=== PATIENT | male | born 1965 | race American Indian/Alaskan Native ===

== ENCOUNTER 2020-02-02 13:42 | Emergency (ER) | payer OTHER ==
[~2020-02-02] VITALS: Ht 177.8 cm; Wt 86.2 kg
[~2020-02-02 13:42] MED LIST: AZIT250 PO; CLOT10 SUSW; HYDACE5 PO; LITH300C; NAPR500 PO
[2020-02-02] MEDS ORDERED: HYDR1TAB94 PO (15:39)
== END 2020-02-02 15:54 | disposition home or self-care (01) ==
LOC: ER 13:42
DX: S83.91XA Sprain of unspecified site of right knee, initial encounter (principal); S86.911A Strain of unspecified muscle(s) and tendon(s) at lower leg level, right leg, initial encounter; F17.200 Nicotine dependence, unspecified, uncomplicated; X50.1XXA Overexertion from prolonged static or awkward postures, initial encounter
CPT/HCPCS: 73562-RT; 99283-25

== ENCOUNTER 2020-05-11 10:03 | Emergency (ER) | payer OTHER ==
[~2020-05-11] VITALS: Ht 177.8 cm; Wt 83.9 kg
[~2020-05-11 10:03] MED LIST changes: +HYDR1TAB94 PO
[2020-05-11] MEDS ORDERED: IBUP400 PO (12:29)
[2020-05-11] MEDS ORDERED: Percocet 5-3251 EACH PO (12:29)
== END 2020-05-11 12:52 | disposition home or self-care (01) ==
LOC: ER 10:03
DX: S62.625A Displaced fracture of middle phalanx of left ring finger, initial encounter for closed fracture (principal); S83.91XA Sprain of unspecified site of right knee, initial encounter; J44.9 Chronic obstructive pulmonary disease, unspecified; F17.210 Nicotine dependence, cigarettes, uncomplicated; Z87.828 Personal history of other (healed) physical injury and trauma; W14.XXXA Fall from tree, initial encounter
CPT/HCPCS: 73140; 73562-RT; 99283-25

== ENCOUNTER 2020-12-11 07:49 | Emergency (ER) | payer OTHER ==
[~2020-12-11] VITALS: Ht 177.8 cm; Wt 81.7 kg
[~2020-12-11 07:49] MED LIST changes: +IBUP400 PO; +Percocet 5-3251 EACH PO
[2020-12-11] MEDS ORDERED: IBUP600 PO (10:00)
[2020-12-11] MEDS ORDERED: Norco 5-325 Ta1 EACH PO (10:00)
== END 2020-12-11 09:53 | disposition home or self-care (01) ==
LOC: ER 07:49
DX: S83.91XA Sprain of unspecified site of right knee, initial encounter (principal); J44.9 Chronic obstructive pulmonary disease, unspecified; F17.210 Nicotine dependence, cigarettes, uncomplicated; W17.2XXA Fall into hole, initial encounter
CPT/HCPCS: 29505; 73562-RT; 99283-25

== ENCOUNTER 2020-12-29 07:37 | Emergency (ER) | payer OTHER ==
[~2020-12-29] VITALS: Ht 177.8 cm; Wt 79.4 kg
[~2020-12-29 07:37] MED LIST changes: +IBUP600 PO; +Norco 5-325 Ta1 EACH PO
[2020-12-29 08:42] LABS: BASOPHILS ABSOLUTE AUTO 0.07 K/mm3 (0.00-0.23); BASOPHILS PERCENT AUTO 1 % (0-2); EOSINOPHILS ABSOLUTE AUTO 0.27 K/mm3 (0.00-0.68); EOSINOPHILS PERCENT AUTO 5 % (0-6); Hematocrit 44.9 % (37.0-53.0); Hemoglobin 15.2 g/dL (13.5-17.5); IMMATURE GRAN ABSOLUTE AUTO 0.02 K/mm3 (0.00-0.10); IMMATURE GRAN PERCENT AUTO 0 % (0-1); LYMPHOCYTES ABSOLUTE AUTO 1.23 K/mm3 (0.84-5.20); LYMPHOCYTES PERCENT AUTO 22 % (21-46); MONOCYTES ABSOLUTE AUTO 0.62 K/mm3 (0.16-1.47); MONOCYTES PERCENT AUTO 11 % (4-13); Mean Corpuscular HGB 31.6 pg (26.0-34.0); Mean Corpuscular HGB Conc 33.9 g/dL (31.5-36.5); Mean Corpuscular Volume 93 fL (80-100); Mean Platelet Volume 9.3 fL (9.1-12.4); NEUTROPHILS ABSOLUTE AUTO 3.32 K/mm3 (1.96-9.15); NEUTROPHILS PERCENT AUTO 60 % (41-73); Platelet Count 288 K/mm3 (150-400); RDW Coefficient Variation 12.6 % (11.7-14.2); RDW Standard Deviation 43.8 fL (35.1-46.3); Red Blood Cell Count 4.81 M/mm3 (4.30-5.90); White Blood Cell Count 5.53 K/mm3 (4.00-11.30)
[2020-12-29 09:02] LABS: Troponin I <0.015 ng/mL (0.000-0.040)
[2020-12-29 09:03] LABS: Alanine Aminotransfer (ALT/SGP 35 U/L (12-78); Albumin/Globulin Ratio 1.1 (0.8-1.8); Alk Phos 90 U/L (50-136); Anion Gap 2 mmol/L (6-16); Aspartate Aminotrans (AST/SGOT 23 U/L (12-37); Bilirubin, Total 0.4 mg/dL (0.1-1.0); Blood Urea Nitrogen 11 mg/dL (8-24); Bun/Creatinine Ratio 12.6 (12.0-20.0); CO2, Blood 29 mmol/L (21-32); Calcium, Blood 8.7 mg/dL (8.5-10.1); Chloride, Blood 104 mmol/L (98-108); Creatinine, Blood 0.87 mg/dL (0.60-1.20); Globulin, Blood 3.6 g/dL (2.2-4.0); Glomerular Filtration Rate >60 (60-); Glucose, Blood 95 mg/dL (70-99); Potassium, Blood 3.8 mmol/L (3.5-5.5); Sodium, Blood 135 mmol/L (136-145); Total Protein, Blood 7.6 g/dL (6.4-8.2)
[2020-12-29 10:21] LABS: CHOL/HDL RATIO 3.2; Cholesterol 196 mg/dL (50-200); HDL Cholesterol 62 mg/dL (>39); LDL/HDL RATIO 1.9; Low Density Lipoprotein Chol 120 mg/dL (0-110); Triglycerides 72 mg/dL (30-160); Very Low Density Lipoprot Chol 14 mg/dL (6-32)
== END 2020-12-29 10:11 | disposition home or self-care (01) ==
LOC: ER 07:37
PROVIDERS: Physician Assistant
DX: R07.9 Chest pain, unspecified (principal); R51.9 Headache, unspecified; M79.602 Pain in left arm; J44.9 Chronic obstructive pulmonary disease, unspecified; F17.210 Nicotine dependence, cigarettes, uncomplicated
CPT/HCPCS: 36415; 70450; 71046; 80053; 80061; 83036; 84443; 84484; 85025; 93005; 93010; 99285-25

== ENCOUNTER 2021-05-30 09:43 | Day surgery (SDC) | payer OTHER ==
[~2021-05-30] VITALS: Ht 177.8 cm; Wt 72.2 kg
[~2021-05-30 09:43] MED LIST changes: +ALBU90OI; +GABA300; +NAPR500
--- NOTE | 2021-05-30 13:17 | NUR ---
05/30/21 1317 KATIE DAVIS STATED THAT VITALS STRIP PARTIALLY ABSENT FROM EXAM WHEN PRINTED FOR CHART. END NOTE ORSC.RDS
--- NOTE | 2021-05-30 14:49 | NUR ---
05/30/21 1449 Kayli Mcgarry LATE ENTRY: 2ND HALF OF PROCEDURES VITAL SIGNS GOT ACCIDENTILY DELETED BEFORE PRINTING IT OUT. PT WAS COMPLETELY STABLE THROUGHOUT THE PROCEDURE.
== END 2021-05-30 13:05 | disposition home or self-care (01) ==
LOC: ORSCSDS 09:43
PROVIDERS: Student in an Organized Health Care Education/Training Program
PROC: 0DBN8ZX Excision of Sigmoid Colon, Via Natural or Artificial Opening Endoscopic, Diagnostic (ICD-10-PCS; principal; 2021-05-30 12:00)
PROC: 0DBL8ZX Excision of Transverse Colon, Via Natural or Artificial Opening Endoscopic, Diagnostic (ICD-10-PCS; principal; 2021-05-30 12:00)
PROC: 0DB98ZX Excision of Duodenum, Via Natural or Artificial Opening Endoscopic, Diagnostic (ICD-10-PCS; principal; 2021-05-30 12:00)
PROC: 0DBC8ZX Excision of Ileocecal Valve, Via Natural or Artificial Opening Endoscopic, Diagnostic (ICD-10-PCS; principal; 2021-05-30 12:00)
PROC: 0DB78ZX Excision of Stomach, Pylorus, Via Natural or Artificial Opening Endoscopic, Diagnostic (ICD-10-PCS; principal; 2021-05-30 12:00)
PROC: 0DB48ZX Excision of Esophagogastric Junction, Via Natural or Artificial Opening Endoscopic, Diagnostic (ICD-10-PCS; principal; 2021-05-30 12:00)
PROC: 0DBM8ZX Excision of Descending Colon, Via Natural or Artificial Opening Endoscopic, Diagnostic (ICD-10-PCS; principal; 2021-05-30 12:00)
PROC: 0DB58ZX Excision of Esophagus, Via Natural or Artificial Opening Endoscopic, Diagnostic (ICD-10-PCS; principal; 2021-05-30 12:00)
PROC: 0DBE8ZX Excision of Large Intestine, Via Natural or Artificial Opening Endoscopic, Diagnostic (ICD-10-PCS; principal; 2021-05-30 12:00)
PROC: 0DBK8ZX Excision of Ascending Colon, Via Natural or Artificial Opening Endoscopic, Diagnostic (ICD-10-PCS; principal; 2021-05-30 12:00)
DX: R19.7 Diarrhea, unspecified (principal); R63.4 Abnormal weight loss; K22.70 Barrett's esophagus without dysplasia; D12.0 Benign neoplasm of cecum; D12.2 Benign neoplasm of ascending colon; D12.3 Benign neoplasm of transverse colon; D12.4 Benign neoplasm of descending colon; D12.5 Benign neoplasm of sigmoid colon; K29.70 Gastritis, unspecified, without bleeding; K64.8 Other hemorrhoids; F17.210 Nicotine dependence, cigarettes, uncomplicated; J44.9 Chronic obstructive pulmonary disease, unspecified; F31.9 Bipolar disorder, unspecified; Z79.899 Other long term (current) drug therapy
CPT/HCPCS: J2250; J2704; J7120

== ENCOUNTER 2022-02-02 05:30 | Emergency (ER) | payer OTHER ==
[~2022-02-02] VITALS: Ht 177.8 cm; Wt 79.4 kg
== END 2022-02-02 06:50 | disposition home or self-care (01) ==
LOC: ER 05:30
DX: S29.011A Strain of muscle and tendon of front wall of thorax, initial encounter (principal); V86.56XA Driver of dirt bike or motor/cross bike injured in nontraffic accident, initial encounter; J44.9 Chronic obstructive pulmonary disease, unspecified; F17.210 Nicotine dependence, cigarettes, uncomplicated
CPT/HCPCS: 36415; 71101; 93005; 93010; 99283-25

== ENCOUNTER 2022-06-28 08:58 | Emergency (ER) | payer OTHER | END 2022-06-28 10:38 | disposition home or self-care (01) | DX: M79.602 Pain in left arm (principal); J44.9 Chronic obstructive pulmonary disease, unspecified; F17.210 Nicotine dependence, cigarettes, uncomplicated; W19.XXXA Unspecified fall, initial encounter ==

== ENCOUNTER 2022-10-29 11:37 | Emergency (ER) | payer OTHER ==
[~2022-10-29] VITALS: Ht 177.8 cm; Wt 77.1 kg
[2022-10-29] MEDS ORDERED: HYDR1TAB94 PO (13:12)
[2022-10-29] MEDS ORDERED: IBUP800 PO (13:12)
[2022-10-29] MEDS ORDERED: CRUTCH4 XX (13:12)
== END 2022-10-29 14:13 | disposition home or self-care (01) ==
LOC: ER 11:37
DX: S93.401A Sprain of unspecified ligament of right ankle, initial encounter (principal); J44.9 Chronic obstructive pulmonary disease, unspecified; F17.210 Nicotine dependence, cigarettes, uncomplicated; W00.0XXA Fall on same level due to ice and snow, initial encounter
CPT/HCPCS: 73610; 73630; A9270

== ENCOUNTER 2024-10-08 05:45 | Day surgery (SDC) | payer OTHER ==
[~2024-10-08] VITALS: Ht 172.7 cm; Wt 65.0 kg
[2024-10-08] VITALS (7 sets, daily range): BP systolic 123–132; BP diastolic 75–91
[~2024-10-08 05:45] MED LIST changes: +ACETAMINOPHEN500 MG PO; +ALBU90OI INH; +ATOR20 PO; +CRUTCH4 XX; +IBUP800 PO; +MELO7.5 PO; +NITR.4SL SL; +OMEP20ER PO; +SILD25T PO
[2024-10-08] MEDS ORDERED: Lactated Ringer's 1,000 ML IV SCH (06:15)
[2024-10-08] MEDS ORDERED: CeFAZolin Sodium 2,000 MG in NS 100 ML IV SCH (07:00)
--- NOTE | 2024-10-08 07:02 | NUR ---
Ambulatory in Day Surgery. History, Chart, Medications and Allergies reviewed before start of procedure. Lungs clear T/O to Auscultation. Patient confirms NPO status and agrees with scheduled surgery. Pre-Op teaching done. Pt verbalizes understanding. Patient States Post-Procedure ride home has been arranged. PT BELONGINGS PLACED [facility] FOR SAFEK[facility].
[2024-10-08] MEDS ORDERED: propofoL 20 ML IV ONE (07:19)
[2024-10-08] MEDS ORDERED: FentaNYL Citrate 50 MCG/ML 2 ML Injection ONE (07:20)
[2024-10-08] MEDS ORDERED: Rocuronium Bromide 10 MG/ML 5ML Injection IV ONE (07:22)
[2024-10-08] MEDS ORDERED: Dexamethasone Sod Phos 10 MG/ML 1ML VIAL ONE (07:31)
[2024-10-08] MEDS ORDERED: Ondansetron HCl 2 MG / ML 2ML Vial ONE (07:31)
[2024-10-08] MEDS ORDERED: Ketorolac Tromethamine 30mg Vial ONE (08:37)
[2024-10-08] MEDS ORDERED: Sugammadex Sodium 200 MG/2ML SDV (100 MG/ML) ONE (08:37)
[2024-10-08] MEDS ORDERED: Bupivacaine 0.5% Inj 50 ML Vial (NON CHARGE) INJ ONE (08:40)
[2024-10-08] MEDS ORDERED: HYDROcodone 5-APAP 325 TAB PO PRN (09:05)
--- NOTE | 2024-10-08 09:53 | NUR ---
DISCHARGE PT A&OX4/VSS/RA/EYES OPEN/TALKING/PLEASANT, PAIN MANAGED WITH NORCO X1, CIELO PO DENIES N&V, DC INS PROVIDED. PT REP UNDERSTANDING THOSE INSTRUCTIONS. GOING HOME WITH SON WENCESLAO, WITH ALL PERSONAL POSSESSIONS AND 1 NORCO SCRIPT.
== END 2024-10-08 23:00 | disposition home or self-care (01) ==
LOC: ORSCMMR 05:45 → ORD 07:30 → ORSCMMR 07:30
PROVIDERS: Surgery
PROC: 0YU50JZ Supplement Right Inguinal Region with Synthetic Substitute, Open Approach (ICD-10-PCS; principal; 2024-10-08 07:30)
DX: K40.90 Unilateral inguinal hernia, without obstruction or gangrene, not specified as recurrent (principal); J44.9 Chronic obstructive pulmonary disease, unspecified; F31.9 Bipolar disorder, unspecified; F17.210 Nicotine dependence, cigarettes, uncomplicated; Z79.899 Other long term (current) drug therapy
CPT/HCPCS: A9270; C1781; J0690; J1100; J1885; J2405; J2704; J3010; J7120